=== PATIENT | female | born 1985 | race Caucasian/White ===

== ENCOUNTER 2020-12-24 15:57 | Day surgery (SDCO) | payer OTHER ==
[~2020-12-24] VITALS: Ht 170.2 cm; Wt 87.7 kg
[2020-12-24 17:47] LABS: BASOPHIL 0.5 % (0-2); EOSINOPHIL 3.6 % (0-5); HGB 11.1 g/dl (12.5-16.0); LYMPHOCYTE 31.1 % (15-48); MCH 31.8 pg (25.0-31.0); MCHC 32.6 g/dL (32.0-36.0); MCV 97.4 fL (78.0-100.0); MONOCYTE 7.9 % (0-12); MPV 10.1 fL (6.0-9.5); NEUTROPHIL 56.5 % (41-80); NRBC 0; PLT 329 K/uL (150-400); RBC 3.49 M/uL (4.20-5.40); RDW 13.4 % (11.5-14.0); WBC 8.1 K/uL (4.0-10.5)
[2020-12-24 17:59] LABS: BUN/CREAT RATIO (CALC) 29.8 RATIO; CREATININE 0.57 mg/dL (0.51-0.95); POTASSIUM 4.8 mmol/L (3.5-5.1)
[2020-12-24] MEDS ORDERED: AUGMENTIN 875-1 EACH PO (23:33)
[2020-12-24] MEDS ORDERED: KETOROLAC TROME10 MG PO (23:34)
[2020-12-24] MEDS ORDERED: BACTRIM DS TAB1 EACH PO (23:34)
[2020-12-24] MEDS ORDERED: PERCOCET 7.5/321 TAB PO (23:34)
[2020-12-25 06:38] LABS: BASOPHIL 0.4 % (0-2); EOSINOPHIL 3.7 % (0-5); HCT 33.8 % (37.0-47.0); HGB 10.8 g/dl (12.5-16.0); LYMPHOCYTE 31.6 % (15-48); MCH 31.2 pg (25.0-31.0); MCV 97.7 fL (78.0-100.0); NRBC 0; PLT 274 K/uL (150-400); RBC 3.46 M/uL (4.20-5.40); RDW 13.2 % (11.5-14.0)
[2020-12-25 06:57] LABS: ALBUMIN 2.3 g/dL (3.4-5.0); BILIRUBIN - TOTAL 0.2 mg/dL (0.2-1.0); BUN/CREAT RATIO (CALC) 23.2 RATIO; C-REACTIVE PROTEIN 1.1 mg/dL (<=0.90); CREATININE 0.69 mg/dL (0.51-0.95); GLOBULIN (CALCULATION) 3.4 g/dL; POTASSIUM 4.4 mmol/L (3.5-5.1); TOTAL PROTEIN 5.7 g/dL (6.4-8.2)
--- NOTE | 2020-12-25 09:59 | NUR ---
12/25/20 Please consider full admit or discharge. Thank You!
[2020-12-26] MEDS ORDERED: OXYCODONE-ACET1 EAC1 PO (10:53)
[2020-12-26] MEDS ORDERED: AUGMENTIN 875-1 EACH PO (10:53)
[2020-12-26] MEDS ORDERED: BACTRIM DS TAB1 EACH PO (10:53)
== END 2020-12-26 12:00 | disposition home or self-care (01) ==
LOC: FER 15:57 → FMS 20:47
PROVIDERS: Nurse Practitioner; Nurse Practitioner Family; ADMIT Internal Medicine
DX: L03.115 Cellulitis of right lower limb (principal); S71.111A Laceration without foreign body, right thigh, initial encounter; F17.210 Nicotine dependence, cigarettes, uncomplicated; I07.1 Rheumatic tricuspid insufficiency; Z20.822 Contact with and (suspected) exposure to COVID-19; Y30.XXXA Falling, jumping or pushed from a high place, undetermined intent, initial encounter
CPT/HCPCS: 36415; 73701; 80048; 80053; 80202; 85025; 86140; G0378; J1170; J2405; J2543; J3370; J7030; J7040; Q9967; U0002